=== PATIENT | female | born 1950 | race Caucasian/White ===

== ENCOUNTER 2024-02-12 09:02 | Outpatient (CLI) | payer MEDICARE, OTHER | END 2024-02-12 09:03 | disposition home or self-care (01) | LOC: CSHSLEEP 09:02 | DX: G47.9 Sleep disorder, unspecified (principal); K21.9 Gastro-esophageal reflux disease without esophagitis; R06.83 Snoring; I10 Essential (primary) hypertension; G47.33 Obstructive sleep apnea (adult) (pediatric) | CPT/HCPCS: 95810 ==